=== PATIENT | female | born 1990 | race American Indian/Alaskan Native ===

== ENCOUNTER 2022-01-22 21:22 | Outpatient (CLI) | payer MEDICAID ==
--- NOTE | 2022-01-22 23:35 | Ultrasound Report ---
US OB follow up INDICATION / CLINICAL INFORMATION: Contractions, Pain clinical indication for estimated weight and amniotic fluid index. COMPARISON: None available. TECHNIQUE: Using a transcutaneous probe, multiple grayscale, color Doppler, and spectral Doppler imag es of the uterus and fetus were captured and stored. FINDINGS: A single cephalic fetus is present. Heart rate 161 bpm. Amniotic fluid index is within normal limits measuring 9.5 cm. Biparietal Diameter = 9.7 cm = 39, 4 weeks, days Head Circumference = 34.5 cm = 39, 6 weeks, days Abdominal Circumference = 33.5 cm = 37, 2 weeks, days Femur Length = 6.8 cm = 35, 1 weeks, days Average Ultrasound Age (AUA) = 38, 0 weeks, days. EDC 02/05/2022. Clinical history gestational age based on LMP of 05/02/2021 is 37 weeks 6 days. Estimated weight = 3182 g. Growth percentile 48%.. IMPRESSION: 1. Single living fetus with estimated weight and normal amniotic fluid index as detailed. Signer Name: Quinten Basilio II, MD Signed: 01/22/2022 11:31 PM Workstation Name: [id number]
[2022-01-22 23:37] LABS: Hematocrit 33.5 % (30.3-42.9); Hemoglobin 11.9 gm/dl (10.1-14.3); Mean Corpuscular HGB Conc 36 % (30-34); Mean Corpuscular Volume 82 fl (79-97); Platelet Count 161 K/mm3 (140-440); Red Blood Count 4.11 M/mm3 (3.65-5.03); Red Cell Distribution Width 13.4 % (13.2-15.2)
[2022-01-22 23:38] LABS: Basophils % (Auto) 0.4 % (0.0-1.8); Eosinophils # (Auto) 0.1 K/mm3 (0.0-0.4); Lymphocytes # (Auto) 2.4 K/mm3 (1.2-5.4); Lymphocytes % (Auto) 31.6 % (13.4-35.0); Monocytes # (Auto) 0.7 K/mm3 (0.0-0.8); Monocytes % (Auto) 9.7 % (0.0-7.3)
[2022-01-22 23:39] LABS: Color,Urine Yellow (Yellow)
[2022-01-22 23:45] LABS: Bacteria,Urine 2+ /HPF (Negative); Mucus,Urine FEW /HPF; RBC,Urine < 1.0 /HPF (0.0-6.0)
[2022-01-22 23:53] LABS: Creatinine,Urine 122.4 mg/dL (0.1-20.0)
[2022-01-22 23:58] LABS: Albumin 3.5 g/dL (3.9-5); Blood Urea Nitrogen 8 mg/dL (7-17); Calcium 8.9 mg/dL (8.4-10.2); Hemolysis Index 14
[2022-01-23 00:10] LABS: Alanine Aminotransferase 12 units/L (7-56)
[2022-01-23 00:11] LABS: BUN/Creatinine Ratio 11
[2022-01-23 00:22] VITALS: BP 111/60
== END 2022-01-23 00:35 | disposition home or self-care (01) ==
LOC: TRG 21:22 → APU 21:23 → TRG 01-23 00:35
PROVIDERS: ATTEND Obstetrics & Gynecology Gynecology
DX: Z34.93 Encounter for supervision of normal pregnancy, unspecified, third trimester (principal); Z3A.37 37 weeks gestation of pregnancy
CPT/HCPCS: 36415; 59025; 76816; 80053; 81001; 82570; 84156; 84550; 85025

== ENCOUNTER 2022-01-31 16:08 | Inpatient (IN) | payer MEDICAID ==
[2022-01-31 20:53] LABS: Color,Urine Straw (Yellow)
[2022-01-31 20:54] LABS: Bacteria,Urine 2+ /HPF (Negative); Mucus,Urine 1+ /HPF
[2022-01-31 20:58] LABS: Hematocrit 34.1 % (30.3-42.9); Hemoglobin 12.2 gm/dl (10.1-14.3); Mean Corpuscular HGB Conc 36 % (30-34); Mean Corpuscular Volume 82 fl (79-97); Red Blood Count 4.15 M/mm3 (3.65-5.03); Red Cell Distribution Width 13.4 % (13.2-15.2)
[2022-01-31 21:10] LABS: Platelet Count 175 K/mm3 (140-440)
[2022-01-31 21:52] LABS: Alanine Aminotransferase 10 units/L (7-56); Uric Acid 4.3 mg/dL (3.5-7.6)
--- NOTE | 2022-01-31 23:46 | Ultrasound Report ---
ULTRASOUND OBSTETRIC Indication: well-being. Maternal headache. COMPARISON: 01/22/2022 Findings: There is a single intrauterine . BPD = 9.5 cm = 38 weeks, 5 day(s). Head circumference = 34.5 cm = 39 weeks, 6 day(s). Abdominal circumference = 36.0 cm = 40 weeks, 0 day(s). Femur length = 7.0 cm = 36 weeks, 2 day(s). Overall estimated sonographic age = 38 weeks, 5 day(s). heart rate is 160 beats per minute. Estimated weight is 3669 grams position is cephalic. Placenta is posterior . Amniotic fluid volume appears normal. Impression: 1. Single living intrauterine with estimated sonographic age of 38 weeks, 5 day(s). 2. No sonographic abnormality identified. Signer Name: Christo Arvizu MD Signed: 01/31/2022 11:41 PM Workstation Name: [email or web address]
[2022-02-01] MEDS ORDERED: TERBUTALINE 1 MG/1 ML INJ SUB-Q PRN (01:10)
[2022-02-01] MEDS ORDERED: BUTORPHANOL 2 MG/1 ML INJ IV PRN (01:10)
[2022-02-01] MEDS ORDERED: CARBOPROST TROMETHAMINE 250 MCG/1 ML INJ IM PRN (01:10)
[2022-02-01] MEDS ORDERED: fentaNYL 100 MCG/2 ML INJ IV PRN (01:10)
[2022-02-01] MEDS ORDERED: ACETAMINOPHEN 325 MG TAB PO PRN ×2 (01:10→16:11)
[2022-02-01] MEDS ORDERED: METHYLERGONOVINE MALEATE 0.2 MG/ML VIAL IM PRN (01:10)
--- NOTE | 2022-02-01 01:10 | History and Physical Report ---
History of Present Illness Date of examination: 02/01/22 Date of admission: 02/01/2022 Chief complaint: Blurry vision History of present illness: 31 y/o at 39-2/7 weeks presents to OB triage reports that she had blurry vision earlier today and called her [employer] office at [facility] who advised her to go to [facility] for further evaluation management. She denies headaches, diplopia, right upper quadrant pain, or scotomata. She denies vaginal bleeding, leaking of fluid, or contractions. There is good movement. The patient had a blood pressure reading >=140/90 during a triage visit on January 22, 2022. Today in OB triage, the patient had a blood pressure reading >=140/90. Urine protein creatinine ratio was normal and estimated 24 urine protein was 161 mg. As such, this fulfills the contemporary criteria for gestational hypertension. Therefore, induction of labor is medically indicated at this gestational age per ACOG Committee Opinion 831. The patient is admitted to labor and delivery for induction of labor secondary to gestational hypertension. Past History Past Medical History: no pertinent history Past Surgical History: no surgical history Family/Genetic History: none Social history: no significant social history - Obstetrical History Expected Date of Delivery: 02/06/22 Actual Gestation: 39 Week(s) 2 Day(s) : 4 Para: 2 Hx # Term Pregnancies: 2 Number of Pregnancies: 0 Spontaneous Abortions: 1 Induced : 0 Number of Living Children: 2 Medications and Allergies Allergies Allergy/AdvReac Type Severity Reaction Status Date / Time No Known Allergies Allergy Verified 01/22/22 22:13 - Vital Signs Vital signs: Vital Signs Pulse BP 90 138/89 01/31/22 18:40 01/31/22 18:40 Temp Pulse Resp BP Pulse Ox 98.5 F 88 18 126/75 100 01/31/22 18:42 02/01/22 00:43 01/31/22 18:42 02/01/22 00:43 02/01/22 00:39 - Physical Exam Breasts: Positive: normal Cardiovascular: Regular rate Lungs: Positive: Normal air movement Abdomen: Positive: normal appearance Genitourinary (Female): Positive: normal external genitalia, normal perenium Vulva: both: normal Vagina: Positive: normal moisture Uterus: Positive: enlarged Adnexa: both: normal Anus/Rectum: Positive: normal perianal skin Extremities: Positive: normal Deep Tendon Reflex Grade: Normal +2 - Obstetrical FHR: category 1 Cervical Dilatation: 1.5 Cervical Effacement Percentage: 40 station: -4 Uterine Contraction Pattern: Irregular Results Result Diagrams: 01/31/22 20:30 01/31/22 20:30 Abnormal lab results 01/31/22 01/31/22 Range/Units 20:30 21:29 MCHC 36 H (30-34) % Urine Creatinine 180.0 H (0.1-20.0) mg/dL Urine Total Protein 29 H (5-11.8) mg/dL Urine Protein to Creatinine Ratio (UPCR)= 0.16 Estimated 24 hour urine protein= 161 mg Ultrasound: report reviewed, image reviewed, other (OB Ultrasound Limited= SLIUP. Vertex. Posterior placenta. EFW= 3669 g (68th %-ile). DEANGELO= 11.5 cm.) Assessment and Plan - Patient Problems (1) 39 weeks gestation of Current Visit: Yes Status: Acute Plan to address problem: care is up-to-date. The patient is GBS negative. (2) Gestational hypertension, third trimester Current Visit: Yes Status: Acute Plan to address problem: The patient had a blood pressure reading >=140/90 during a triage visit on January 22, 2022. Today in OB triage, the patient had a blood pressure reading >=140/90. Urine protein creatinine ratio was normal and estimated 24 urine protein was 161 mg. As such, this fulfills the contemporary criteria for gestational hypertension. She denies headaches, diplopia, right upper quadrant pain, or scotomata. She denies vaginal bleeding, leaking of fluid, or contractions. There is good movement. Therefore, induction of labor is medically indicated at this gestational age per ACOG Committee Opinion 831. (3) Encounter for induction of labor Current Visit: Yes Status: Acute Plan to address problem: Ripen cervix with oral Cytotec and place Cook's catheter to gentle traction. Augment cervical ripening with intravaginal Monoket. Once Cook's catheter falls out, then artificially rupture membranes insert Pitocin if contractions or not adequate.
[2022-02-01] MEDS ORDERED: OXYTOCIN DRIP 30 UNITS/500 ML BAG IV SCH ×2 (02:00→17:00)
[2022-02-01] MEDS: miSOPROStol 25 MCG TAB PO SCH ×2 (02:37→06:44)
[2022-02-01] MEDS: LACTATED RINGERS 1,000 ML IV SCH ×5 (04:10→09:03)
[2022-02-01] MEDS ORDERED: ePHEDrine SULFATE 50 MG/1 ML INJ ONE (08:04)
--- NOTE | 2022-02-01 08:32 | Anesthesia Day of Surgery ---
Anesthesia Day of Surgery - Day of Surgery Patient Examined: Yes Patient H&P Reviewed: Yes Patient is NPO: Yes Beta Blockers: No Cardiac Clearance: No Pulmonary Clearance: No Luis's Test: N/A
--- NOTE | 2022-02-01 08:32 | Anesthesia Consultation ---
Anesthesia Consult and Med Hx Date of service: 02/01/22 - Airway Anesthetic Teeth Evaluation: Good ROM Head & Neck: Adequate Mental/Hyoid Distance: Adequate Mallampati Class: Class II Intubation Access Assessment: Probably Good - Pulmonary Exam CTA: Yes - Cardiac Exam Cardiac Exam: RRR - Pre-Operative Health Status ASA Pre-Surgery Classification: ASA2 Proposed Anesthetic Plan: Epidural - Pulmonary Hx Smoking: No Hx Asthma: No Hx Respiratory Symptoms: No SOB: No COPD: No Home Oxygen Therapy: No Hx Pneumonia: No Hx Sleep Apnea: No - Cardiovascular System Hx Hypertension: No Hx Coronary Artery Disease: No Hx Heart Attack/AMI: No Hx Angina: No Hx Percutaneous Transluminal Coronary Angioplasty (PTCA): No Hx Cardia Arrhythmia: No Hx Pacemaker: No Hx Internal Defibrillator: No Hx Valvular Heart Disease: No Hx Heart Murmur: No Hx Peripheral Vascular Disease: No - Central Nervous System Hx Neuromuscular Disorder: No Hx Seizures: No CVA: No Hx Psychiatric Problems: No - Gastrointestinal Hx Ulcer: No Hx Gastroesophageal Reflux Disease: No - Endocrine Hx Renal Disease: No Hx End Stage Renal Disease: No Hx Cirrhosis: No Hx Liver Disease: No Hx Insulin Dependent Diabetes: No Hx Non-Insulin Dependent Diabetes: No Hx Thyroid Disease: No Hx Hypothyroidism: No Hx Hyperthyroidism: No - Hematic Hx Anemia: No Hx Sickle Cell Disease: No - Other Systems Hx Alcohol Use: No Hx Substance Use: No Hx Cancer: No Hx Obesity: No
--- NOTE | 2022-02-01 08:33 | Progress Note ---
Labor Epidural - Labor Epidural Start Time: 08:05 Stop Time: 08:10 Performed by:: FRANCISCO KRAMER Procedure: Epidural Requested for Labor Pain. H&P and PT Chart reviewed and consent obtained. Time out performed and the procedure was explained, all questions answered. Patient was placed in a sitting position with monitors applied. The PTs back was prepped and draped in usual sterile fashion. The Skin was localized with 3 mL of 1% lidocaine at L3-L4. A 17-gauge Touhy epidural needle was advanced to CORTEZ with saline at 7 cm and no blood/CSF was noted via epidural needle. Epidural catheter was advanced to 12 cm. There was negative aspiration for blood and CSF in the catheter and negative response to a test dose of 3 ml 1.5% lidocaine w/ Epi and a sterile dressing was applied Patient tolerated the procedure well and there were no immediate complications noted.
[2022-02-01] MEDS ORDERED: NALOXONE 0.4 MG/1 ML INJ IV PRN (09:00)
[2022-02-01] MEDS ORDERED: fentaNYL-BUPIV 2 MCG/ML-0.125% 200 MCG/100 ML BAG EPIDURAL SCH (09:00)
[2022-02-01] MEDS ORDERED: ePHEDrine SULFATE 50 MG/1 ML INJ IV PRN (09:00)
--- NOTE | 2022-02-01 10:35 | Event Note ---
Date: 02/01/22 Patient is now post epidural, states much more comfortable now. VE:/ posterior. AROM clr with some old blood noted.
[2022-02-01] MEDS ORDERED: OXYTOCIN DRIP 30,000 MILLIUNITS/500 ML BAG IV ONE (11:47)
[2022-02-01 12:07] LABS: Hematocrit 31.7 % (30.3-42.9); Mean Corpuscular HGB Conc 35 % (30-34); Mean Corpuscular Volume 83 fl (79-97); Platelet Count 150 K/mm3 (140-440); Red Blood Count 3.82 M/mm3 (3.65-5.03); Red Cell Distribution Width 13.2 % (13.2-15.2)
--- NOTE | 2022-02-01 14:33 | Event Note ---
Date: 02/01/22 Checked on pt states feeling her contractions and pressure. VE: 8.5/90/-2, RN informed for bolus of her epidural.
[2022-02-01] MEDS ORDERED: BUPIVACAINE/PF (0.5%) 5 MG/1 ML 10 ML VIAL INFILTRATI ONE (14:45)
--- NOTE | 2022-02-01 16:02 | Procedure Note ---
OB Delivery Note - Delivery Date of Delivery: 02/01/22 Surgeon: VIPUL SHRESTHA Estimated blood loss: 200cc - Vaginal Delivery presentation: vertex (@ 1535) Delivery position: OA Intrapartum events: none Delivery induction: other (balloon) Delivery augmentation: rupture of membranes (clear), pitocin Delivery monitor: external FHT, external uterine Route of delivery: Delivery placenta: spontaneous (1542) Delivery cord: 3 umbilical vessels Episiotomy: none Delivery laceration: none Anesthesia: epidural Delivery comments: now was induced for Gestational hypertension @39.2 weeks gestation. She was induced with a zuñiga balloon and cytotec, then augmented by AROM and Pitocin. She received an epidural, become complete and 0 station. After 7 pushes, she delivered a viable baby boy on 02/01/22 @ 1535, 8/9 , 9.10 pounds, over an intact perineum. Infant was placed on mother's abdomen, delayed cord clamping, cord was cut by maternal grandmother. Placenta delivered spontaneously @1542. No lacerations. QBL 200ml. both and mother stable. - A at 1 minute: 8 at 5 minutes: 9 Infant Gender: Male (9.10 pounds)
[2022-02-01] MEDS ORDERED: HYDROCORTISONE 25 MG RECTAL SUPP PR PRN (16:11)
[2022-02-01] MEDS ORDERED: diphenhydrAMINE 25 MG CAP PO PRN (16:11)
[2022-02-01] MEDS ORDERED: ONDANSETRON 4 MG/2 ML INJ IV PRN (16:11)
[2022-02-01] MEDS ORDERED: MAGNESIUM HYDROXIDE (MOM) ORAL LIQD UDC PO PRN (16:11)
[2022-02-01] MEDS ORDERED: PROMETHAZINE 25 MG RECT SUPP PR PRN (16:11)
[2022-02-01] MEDS ORDERED: WITCH HAZEL/ GLYCERIN PAD TP PRN (16:11)
[2022-02-01] MEDS ORDERED: LANOLIN/ZINC/DIMETHICONE (LANSINOH) 7 GM TP PRN (16:11)
[2022-02-01] MEDS ORDERED: HYDROcodone/ACETAMINOPHEN 5-325 MG TAB PO PRN (16:11)
[2022-02-01] MEDS ORDERED: PROMETHAZINE 25 MG TAB PO PRN (16:11)
[2022-02-01] MEDS: SENNOSIDES/DOCUSATE SODIUM 8.6/50 MG TAB PO SCH (18:40)
[2022-02-01] MEDS: IBUPROFEN 600 MG TAB PO SCH ×2 (18:44→23:11)
[2022-02-01] MEDS: DOCUSATE SODIUM 100 MG CAP PO SCH (23:11)
[2022-02-02] MEDS: SENNOSIDES/DOCUSATE SODIUM 8.6/50 MG TAB PO SCH ×2 (05:08→18:30)
[2022-02-02] MEDS: IBUPROFEN 600 MG TAB PO SCH ×3 (05:09→18:31)
[2022-02-02 06:30] LABS: Hemoglobin 10.8 gm/dl (10.1-14.3)
--- NOTE | 2022-02-02 07:23 | Post Anesthesia Evaluation ---
- Post Anesthesia Evaluation Patient Participated: Yes Airway Patent: Yes Stable Respiratory Function: Yes Nausea/Vomiting: No Temp > 96.8F: Yes Pain Manageable: Yes Adequeate Hydration: Yes Anesthesia Complications: No Block Receding Appropriately: Yes Patient on Ventilator: No
--- NOTE | 2022-02-02 08:43 | Progress Note ---
Assessment and Plan A: stable P: continue PP care per unit protocol d/c home Subjective - Subjective Date of service: 02/02/22 Principal diagnosis: Patient reports: appetite normal, voiding normally, pain well controlled, amb ulating normally Deal: doing well Objective - Vital Signs Latest vital signs: Vital Signs Temp Pulse Resp BP BP Pulse Ox Pulse Ox 02/02/22 08:18 97.5 F L 93 H 18 125/83 100 02/02/22 00:46 98.3 F 100 H 18 121/67 99 02/01/22 20:40 99.3 F 98 H 18 125/74 100 02/01/22 20:00 99 02/01/22 18:05 98.6 F 102 H 20 137/82 100 100 02/01/22 17:48 105 H 137/76 02/01/22 17:46 106 H 132/79 02/01/22 17:45 60 98 02/01/22 17:40 105 H 81 L 02/01/22 17:34 187 H 81 L 02/01/22 17:31 96 H 132/79 02/01/22 17:29 83 L 02/01/22 17:26 156 H 73 L 02/01/22 17:24 27 L 75 L 02/01/22 17:20 106 H 99 02/01/22 17:16 100 H 144/90 02/01/22 17:15 85 02/01/22 17:12 92 02/01/22 17:01 108 H 145/81 02/01/22 16:58 82 L 02/01/22 16:56 89 128/77 100 02/01/22 16:52 67 89 02/01/22 16:51 62 89 02/01/22 16:47 48 L 02/01/22 16:46 57 L 150/87 52 L 02/01/22 16:42 78 L 02/01/22 16:41 64 73 L 02/01/22 16:36 66 91 02/01/22 16:32 95 H 139/79 02/01/22 16:31 107 H 82 L 02/01/22 16:30 86 84 02/01/22 16:26 99 H 98 02/01/22 16:21 108 H 99 02/01/22 16:16 104 H 131/76 99 02/01/22 16:11 111 H 98 02/01/22 16:09 100 H 130/78 02/01/22 16:06 109 H 100 02/01/22 16:01 105 H 163/71 100 02/01/22 15:56 97.9 F 109 H 18 100 02/01/22 15:52 95 H 141/73 02/01/22 15:51 98 H 100 02/01/22 15:50 131 H 139/89 02/01/22 15:46 92 H 99 02/01/22 15:41 97 H 100 02/01/22 15:36 92 H 140/77 100 02/01/22 15:31 106 H 100 02/01/22 15:26 113 H 100 02/01/22 15:21 122 H 100 02/01/22 15:19 93 H 147/66 02/01/22 15:16 108 H 100 02/01/22 15:11 92 H 100 02/01/22 15:06 95 H 100 02/01/22 15:04 88 140/63 02/01/22 15:01 95 H 100 02/01/22 14:56 99 H 100 02/01/22 14:51 88 100 02/01/22 14:50 86 149/63 02/01/22 14:46 105 H 100 02/01/22 14:41 93 H 100 02/01/22 14:36 91 H 100 02/01/22 14:35 91 H 156/75 02/01/22 14:31 91 H 100 02/01/22 14:26 89 100 02/01/22 14:21 91 H 135/87 100 02/01/22 14:16 80 100 02/01/22 14:11 86 99 02/01/22 14:06 83 98 02/01/22 14:05 81 122/71 02/01/22 14:01 97.9 F 86 17 100 02/01/22 13:56 82 98 02/01/22 13:51 95 H 98 02/01/22 13:49 75 117/57 02/01/22 13:46 82 97 02/01/22 13:41 78 98 02/01/22 13:36 92 H 99 02/01/22 13:35 90 120/56 02/01/22 13:31 92 H 98 02/01/22 13:27 92 H 94 09/01/22 13:26 90 96 02/01/22 13:21 77 99 02/01/22 13:20 80 115/60 02/01/22 13:16 84 98 02/01/22 13:11 86 98 02/01/22 13:06 85 99 02/01/22 13:05 78 111/57 02/01/22 13:01 89 98 02/01/22 12:56 83 100 02/01/22 12:51 101 H 99 02/01/22 12:49 81 127/67 02/01/22 12:46 81 100 02/01/22 12:41 87 99 02/01/22 12:36 77 128/64 100 02/01/22 12:31 80 100 02/01/22 12:26 78 100 02/01/22 12:23 85 94 02/01/22 12:21 81 100 02/01/22 12:20 72 122/73 02/01/22 12:16 78 100 02/01/22 12:11 79 100 02/01/22 12:06 88 132/68 100 02/01/22 12:01 81 99 02/01/22 11:56 73 100 02/01/22 11:51 74 116/69 100 02/01/22 11:45 83 100 02/01/22 11:43 98.4 F 18 02/01/22 11:40 78 100 02/01/22 11:36 73 120/69 02/01/22 11:35 77 100 02/01/22 11:30 83 100 02/01/22 11:25 78 100 02/01/22 11:20 75 100 02/01/22 11:19 78 116/63 02/01/22 11:15 76 100 02/01/22 11:10 78 97 02/01/22 11:05 79 100 02/01/22 11:04 80 114/64 02/01/22 11:00 85 100 02/01/22 10:55 86 100 02/01/22 10:50 86 100 02/01/22 10:49 86 119/70 02/01/22 10:45 85 100 02/01/22 10:40 85 100 02/01/22 10:36 83 119/68 02/01/22 10:35 86 100 02/01/22 10:30 94 H 100 02/01/22 10:25 91 H 100 02/01/22 10:20 83 100 02/01/22 10:19 82 113/57 02/01/22 10:15 77 100 02/01/22 10:10 72 100 02/01/22 10:05 80 100 02/01/22 10:04 75 110/58 02/01/22 10:00 81 100 02/01/22 09:55 72 100 02/01/22 09:50 82 100 02/01/22 09:49 75 108/56 02/01/22 09:45 76 100 02/01/22 09:40 79 100 02/01/22 09:35 86 100 02/01/22 09:34 85 107/59 02/01/22 09:30 81 100 02/01/22 09:25 80 100 02/01/22 09:20 85 100 02/01/22 09:19 82 106/57 02/01/22 09:15 80 100 02/01/22 09:10 80 100 02/01/22 09:05 81 100 02/01/22 09:04 79 108/57 02/01/22 09:02 81 106/57 02/01/22 09:00 78 104/57 98 02/01/22 08:58 82 101/56 02/01/22 08:56 85 103/57 02/01/22 08:55 86 99 02/01/22 08:54 83 105/57 02/01/22 08:52 87 112/55 02/01/22 08:50 81 114/59 98 02/01/22 08:48 82 115/59 02/01/22 08:46 86 104/56 02/01/22 08:45 89 99 02/01/22 08:44 81 105/58 Intake and Output 02/01/22 02/02/22 02/02/22 23:59 07:59 15:59 Intake Total 320 180 Output Total 1050 Balance -730 180 Intake: Oral 200 Intake, Free Water 120 180 Output: Urine 1050 Void 1050 Other: Total, Intake Amount 200 Total, Output Amount 300 # Voids Void 1 1 Estimated Blood Loss 200 - Exam Breasts: Present: normal Cardiovascular: Present: Regular rate Lungs: Present: Clear to auscultation, Normal air movement Abdomen: Present: normal appearance, soft Uterus: Present: firm, fundal height below umbilicus Extremities: Present: normal Deep Tendon Reflex Grade: Normal +2 - Labs Labs: Abnormal lab results 02/01/22 Range/Units 11:18 MCHC 35 H (30-34) %
--- NOTE | 2022-02-02 08:44 | Discharge Summary ---
Providers - Providers Date of Admission: 02/01/22 02:05 Date of discharge: 02/02/22 Attending physician: INDY SMITH Primary care physician: INDY SMITH Hospitalization Reason for admission: induction of labor (GHTN) Delivery: Episiotomy: none Laceration: none Other procedures: none complications: none Discharge diagnosis: IUP at term delivered Ellery baby: male Condition at discharge: Good Disposition: 01 HOME / SELF CARE / HOMELESS Plan - Discharge Medications Prescriptions: Ibuprofen [Motrin 600 MG tab] 800 mg PO Q8H #30 tablet - Provider Discharge Summary Activity: no sex for 6 weeks, no heavy lifting 4 weeks, no strenuous exercise Diet: routine Instructions: routine Additional instructions: [] Smoking cessation referral if applicable(refer to patient education folder for contact #) [] Refer to [facility] Booklet Call your doctor immediately for: * Fever > 100.5 * Heavy vaginal bleeding ( >1 pad per hour) * Severe persistent headache * Shortness of breath * Reddened, hot, painful area to leg or breast * Drainage or odor from incision. * - Follow up plan Follow up: INDY SMITH MD [Primary Care Provider] - 6 Weeks
[2022-02-02] MEDS: DOCUSATE SODIUM 100 MG CAP PO SCH (10:27)
[2022-02-02 18:43] VITALS: BP 135/88
== END 2022-02-02 19:36 | disposition home or self-care (01) | DRG 775 ==
LOC: TRG 16:08 → APU 16:08 → TRG 02-01 01:10 → LD 02-01 02:05 → OB 02-01 18:02
PROVIDERS: ADMIT Obstetrics & Gynecology; ATTEND Obstetrics & Gynecology
PROC: 10E0XZZ Delivery of Products of Conception, External Approach (ICD-10-PCS; principal; 2022-02-01)
PROC: 3E0R3BZ Introduction of Anesthetic Agent into Spinal Canal, Percutaneous Approach (ICD-10-PCS; 2022-02-01)
PROC: 00HU33Z Insertion of Infusion Device into Spinal Canal, Percutaneous Approach (ICD-10-PCS; 2022-02-01)
PROC: 10907ZC Drainage of Amniotic Fluid, Therapeutic from Products of Conception, Via Natural or Artificial Opening (ICD-10-PCS; 2022-02-01)
DX: O13.4 Gestational [pregnancy-induced] hypertension without significant proteinuria, complicating childbirth (principal); Z37.0 Single live birth; Z3A.39 39 weeks gestation of pregnancy; Z20.822 Contact with and (suspected) exposure to COVID-19
CPT/HCPCS: 36415; 59200; 76816; 81001; 82565; 82570; 83615; 84156; 84450; 84460; 84550; 85014; 85018; 85027; 86850; 86900; 86901; G0378; J3490; J2590; J3010; J7120; U0003